=== PATIENT | male | born 1940 | race Caucasian/White ===

== ENCOUNTER 2021-12-13 10:19 | Emergency (ER) | payer OTHER ==
[~2021-12-13 10:19] MED LIST: FLEXERIL 10 MG10 MG PO; NORCO 5-325 TA1 EACH PO
[2021-12-13 11:46] LABS: BUN/CREATININE RATIO 26 (0-10)
[2021-12-13 12:41] LABS: HEMOGLOBIN 15.5 gm/dl (14.0-17.5); RED BLOOD COUNT 4.91 M/UL (4.20-5.50); WHITE BLOOD COUNT 9.4 K/UL (4.5-11.0)
[2021-12-13] MEDS ORDERED: ELIQUIS 5 MG TAB5 MG PO (13:02)
[2021-12-13] MEDS ORDERED: ZITHROMAX250 MG PO (13:02)
[2021-12-13] MEDS ORDERED: AMOXICILLIN500 M1 PO (13:02)
== END 2021-12-13 13:45 | disposition home or self-care (01) ==
LOC: ER1 10:19
PROVIDERS: Nurse Practitioner
DX: I48.91 Unspecified atrial fibrillation (principal); J44.0 Chronic obstructive pulmonary disease with (acute) lower respiratory infection; J18.9 Pneumonia, unspecified organism; I10 Essential (primary) hypertension; Z88.8 Allergy status to other drugs, medicaments and biological substances; Z20.822 Contact with and (suspected) exposure to COVID-19; Z51.81 Encounter for therapeutic drug level monitoring
CPT/HCPCS: 0240U; 36600; 71045; 80053; 82550; 82553; 82803; 83880; 84484; 85025; 85610; 85730; 93005; 96374; 99284; J0696